=== PATIENT | male | born 1960 | race Hispanic/Latino ===

== ENCOUNTER 2019-01-18 15:44 | Outpatient (CLI) | payer BC ==
--- NOTE | 2019-01-18 16:05 | CT ---
Low-dose lung screening CT. HISTORY: Patient with history of tobacco abuse Z72.0. Low-dose CT performed with coronal and sagittal reconstructions performed. CT images demonstrate coronary artery calcifications involving the distal left main, proximal LAD art eries. Small areas of calcified plaques also seen in the right coronary artery. Areas of lung parenchymal scarring seen in the right lower lobe. Some areas of atelectasis also prese nt in the left lower lobe. No definite evidence of lymphadenopathy seen. No lung parenchymal nodular densities seen suspicious for malignancy. IMPRESSION: Lung rads category 1-negative Transcribed Date/Time: 01/18/2019 4:07 PM
== END 2019-01-18 15:45 | disposition home or self-care (01) ==
LOC: CT 15:44
PROVIDERS: ATTEND Physician Assistant
DX: F17.210 Nicotine dependence, cigarettes, uncomplicated (principal)
CPT/HCPCS: G0297

== ENCOUNTER 2023-07-14 12:45 | Outpatient (CLI) | payer BC | END 2023-07-14 12:46 | disposition home or self-care (01) | LOC: CT 12:45 | PROVIDERS: ATTEND Thoracic Surgery (Cardiothoracic Vascular Surgery) | DX: I77.9 Disorder of arteries and arterioles, unspecified (principal); I65.23 Occlusion and stenosis of bilateral carotid arteries; I70.8 Atherosclerosis of other arteries; M48.02 Spinal stenosis, cervical region; M25.78 Osteophyte, vertebrae | CPT/HCPCS: 70498; 82565 ==

== ENCOUNTER 2023-07-23 09:00 | Inpatient (IN) | payer BC ==
[2023-07-24] MEDS ORDERED: Heparin 5,000 UNITS/ML VIAL ONE (11:11)
[2023-07-24] MEDS ORDERED: EPINEPHrine 1 MG/ML VIAL ONE (11:11)
[2023-07-24] MEDS ORDERED: Bupivacaine 0.25% HCL 30 ML VIAL ONE (11:17)
[2023-07-24] MEDS ORDERED: fentaNYL 50 mcg/mL 1 mL Vial ONE ×4 (11:38→15:12)
[2023-07-24] MEDS ORDERED: Midazolam HCl 2 mg/2 ml Vial ONE (11:39)
[2023-07-24] MEDS ORDERED: Lidocaine 1% MPF 2 ML VIAL ONE (11:43)
[2023-07-24] MEDS ORDERED: Rocuronium Bromide 10 MG/ML (10ML VIAL) ONE (11:55)
[2023-07-24] MEDS ORDERED: Lidocaine 1% PF 5 ML VIAL ONE (11:55)
[2023-07-24] MEDS ORDERED: NEOSTIGMINE 3 MG/3 ML SYR 3 MG/3 ML SYRINGE ONE (11:55)
[2023-07-24] MEDS ORDERED: PROPOFOL 200 MG/20 ML VIAL ONE (11:55)
[2023-07-24] MEDS ORDERED: Glycopyrrolate 0.2 MG/ML 5 ML SYRINGE ONE (11:55)
[2023-07-24] MEDS ORDERED: Dexamethasone 20 MG/5 ML VIAL ONE (11:55)
[2023-07-24] MEDS ORDERED: Ondansetron PF 4 MG/2 ML Vial ONE ×2 (11:55→14:10)
[2023-07-24] MEDS ORDERED: CEFAZOLIN 2 GM VIAL ONE (11:58)
[2023-07-24] MEDS ORDERED: Sodium Chloride 0.9% 100 ML ONE (11:58)
[2023-07-24] MEDS ORDERED: niCARdipine 25 MG/10 ML SDV ONE (11:58)
[2023-07-24] MEDS ORDERED: Phenylephrine 40 MG/NS 250 ML 250 ML ONE (11:58)
[2023-07-24] MEDS ORDERED: Protamine Sulfate 50 MG/5 ML VIAL ONE (13:02)
[2023-07-24] MEDS ORDERED: Acetaminophen 325 MG TAB PO PRN (13:41)
[2023-07-24] MEDS ORDERED: Promethazine HCl 25 MG/ML VIAL IM PRN (13:41)
[2023-07-24] MEDS ORDERED: niCARdipine 25 MG in Sodium Chloride 0.9% 250 ML 250 ML IVPB PRN (13:41)
[2023-07-24] MEDS ORDERED: Ondansetron PF 4 MG/2 ML Vial IVP PRN (13:41)
[2023-07-24] MEDS ORDERED: fentaNYL 50 mcg/mL 1 mL Vial SLOW IVP PRN ×2 (13:41)
[2023-07-24] MEDS ORDERED: Phenylephrine 40 MG in Sodium Chloride 0.9% 250 ML 250 ML IVPB PRN (13:41)
[2023-07-24] MEDS ORDERED: Lactated Ringer's 1,000 ML IV SCH (13:41)
[2023-07-24] MEDS ORDERED: Ipratropium/Albuterol 3 ML NEB NEB PRN (13:41)
[2023-07-24 15:44] VITALS: BMI 25.9
[2023-07-24] MEDS: Sodium Chloride 0.9% 1,000 ML IV SCH (15:46)
[2023-07-24] MEDS: HYDROcodone/Acetaminophen 5/325 mg Tablet PO PRN (16:28)
[2023-07-24] MEDS ORDERED: FLU VACC QS2023-24(6MOS UP)/PF 60 MCG/0.5 ML SYRINGE IM ONE (16:45)
[2023-07-24] MEDS: Ketorolac Tromethamine 30 MG/ML VIAL IVP SCH (17:34)
[2023-07-24] MEDS: CEFAZOLIN 2 GM in Sodium Chloride 0.9% 100 ML IVPB SCH (20:58)
[2023-07-24] MEDS ORDERED: Atorvastatin Calcium 10 MG TAB PO SCH (21:00)
[2023-07-25] MEDS: Ketorolac Tromethamine 30 MG/ML VIAL IVP SCH ×3 (00:21→11:55)
[2023-07-25] MEDS: Sodium Chloride 0.9% 1,000 ML IV SCH ×3 (00:21→11:55)
[2023-07-25] MEDS: CEFAZOLIN 2 GM in Sodium Chloride 0.9% 100 ML IVPB SCH ×2 (03:39→11:57)
[2023-07-25 07:59] VITALS: TEMP 97.8
[2023-07-25] MEDS ORDERED: Aspirin Chewable 81 MG TAB PO SCH (09:00)
[2023-07-25] MEDS: HYDROcodone/Acetaminophen 5/325 mg Tablet PO PRN (12:01)
== END 2023-07-25 15:20 | disposition home or self-care (01) | DRG 39 ==
LOC: SURG A 07-24 11:02 → CCU 07-24 15:32
PROVIDERS: ADMIT Thoracic Surgery (Cardiothoracic Vascular Surgery); ATTEND Thoracic Surgery (Cardiothoracic Vascular Surgery)
PROC: 03CL0ZZ Extirpation of Matter from Left Internal Carotid Artery, Open Approach (ICD-10-PCS; principal; 2023-07-24)
PROC: 03CJ0ZZ Extirpation of Matter from Left Common Carotid Artery, Open Approach (ICD-10-PCS; 2023-07-24)
PROC: 03CN0ZZ Extirpation of Matter from Left External Carotid Artery, Open Approach (ICD-10-PCS; 2023-07-24)
PROC: 03UN0KZ Supplement Left External Carotid Artery with Nonautologous Tissue Substitute, Open Approach (ICD-10-PCS; 2023-07-24)
PROC: 03UJ0KZ Supplement Left Common Carotid Artery with Nonautologous Tissue Substitute, Open Approach (ICD-10-PCS; 2023-07-24)
DX: I65.22 Occlusion and stenosis of left carotid artery (principal); E78.00 Pure hypercholesterolemia, unspecified; K21.9 Gastro-esophageal reflux disease without esophagitis; Z98.890 Other specified postprocedural states; Z83.3 Family history of diabetes mellitus; Z82.49 Family history of ischemic heart disease and other diseases of the circulatory system; Z79.82 Long term (current) use of aspirin; Z79.899 Other long term (current) drug therapy
CPT/HCPCS: C1768; J0171; J1100; J1642; J1644; J1885; J2250; J2405; J2704; J2720; J3010; J3490; J7120; S0020

== ENCOUNTER 2023-07-23 12:15 | Outpatient (CLI) | payer BC ==
[2023-07-23 13:12] LABS: Hematocrit 46.2 % (38.8-50.0); Hemoglobin 15.4 g/dL (13.5-17.5); Mean Corpuscular HGB CONC 33.3 g/dL (32.0-36.0); Mean Corpuscular Hemoglobin 30.7 pg (27.0-33.0); Mean Corpuscular Volume 92.2 fl (81.2-95.1); Mean Platelet Volume 9.6 fl (7.4-10.4); Platelet Count 255 10x3/uL (150-450); RBC Distribution Width 12.9 % (11.5-14.5); Red Blood Cell (RBC) Count 5.01 10x6/uL (4.32-5.72); White Blood Cell (WBC) Count 11.2 10x3/uL (3.5-10.5)
[2023-07-23 13:35] LABS: Anion Gap 15 mmol/L (10-20); BUN (Urea Nitrogen) 18 mg/dL (8.4-25.7); Calc. Creatinine Clearance 0 mL/min (70-130); Calcium 9.4 mg/dL (7.8-10.44); Carbon Dioxide 24 mmol/L (22-29); Chloride 105 mmol/L (98-107); Estimated GFR 72; Glucose 101 mg/dL (70-105); Potassium 4.6 mmol/L (3.5-5.1); Sodium 139 mmol/L (136-145)
== END 2023-07-23 12:16 | disposition home or self-care (01) ==
LOC: LABBT 12:15
PROVIDERS: ATTEND Thoracic Surgery (Cardiothoracic Vascular Surgery)
DX: Z01.812 Encounter for preprocedural laboratory examination (principal); I65.29 Occlusion and stenosis of unspecified carotid artery
CPT/HCPCS: 80048; 85027

== ENCOUNTER 2023-10-15 06:00 | Day surgery (SDC) | payer BC ==
[2023-10-14 15:05] VITALS: BMI 25.8
[2023-10-15] MEDS ORDERED: Midazolam HCl 2 mg/2 ml Vial ONE (06:15)
[2023-10-15] MEDS ORDERED: Heparin 10,000 UNITS/ 10 ML VIAL ONE (06:15)
[2023-10-15] MEDS ORDERED: fentaNYL 50 mcg/mL 1 mL Vial ONE (06:15)
[2023-10-15 06:39] LABS: Hematocrit 43.7 % (42.0-52.0); Hemoglobin 15.1 g/dL (14.0-18.0)
[2023-10-15 07:06] LABS: Anion Gap 10 mmol/L (10-20); BUN (Urea Nitrogen) 19 mg/dL (8.4-25.7); Calc. Creatinine Clearance 77 mL/min (70-130); Carbon Dioxide 22 mmol/L (22-29); Chloride 110 mmol/L (98-107); Estimated GFR 81; Glucose 109 mg/dL (70-105); Potassium 3.9 mmol/L (3.5-5.1); Sodium 138 mmol/L (136-145)
[2023-10-15] MEDS ORDERED: Acetaminophen/Codeine 30-300mg Tablet ONE (10:52)
[2023-10-15] MEDS ORDERED: Iopamidol 370 76% 100 ML VIAL ONE ×2 (11:23→11:46)
== END 2023-10-15 13:30 | disposition home or self-care (01) ==
LOC: SDC 06:00
PROVIDERS: ATTEND Internal Medicine Cardiovascular Disease
PROC: 03HY32Z Insertion of Monitoring Device into Upper Artery, Percutaneous Approach (ICD-10-PCS; principal; 2023-10-15)
DX: I73.9 Peripheral vascular disease, unspecified (principal); E78.5 Hyperlipidemia, unspecified; F17.200 Nicotine dependence, unspecified, uncomplicated; Z79.899 Other long term (current) drug therapy; Z79.82 Long term (current) use of aspirin
CPT/HCPCS: 36200; 36215; 75625; 75630; 75635; 80048; 85014; 85018; 99152; C1769; C1894; J1644; J2250; J3010; Q9967